=== PATIENT | female | born 1970 | race Caucasian/White ===

== ENCOUNTER 2023-12-22 15:51 | Emergency (ER) | payer BC, OTHER, SELFPAY ==
[2023-12-22 15:59] VITALS: BP 120/80; PULSE 89; TEMP 36.7; O2SAT 100; BMI 30.2
--- NOTE | 2023-12-22 16:16 | ED_ITS ---
HPI - Nausea/Vomiting/Diarrhea General Chief complaint: Nausea/Vomiting/Diarrhea Stated complaint: VOMITING Time Seen by Provider: 12/22/23 16:16 Source: patient Mode of arrival: Wheelchair History of Present Illness HPI Narrative: This patient is here with abrupt onset nausea vomiting and diarrhea last evening. She will to a [facility] service yesterday that had a potluck type food presentation. She had that meal and then approximately 8 hours later she had abrupt onset of vomiting and copious diarrhea followed after that. No other household members are ill but she does not know anyone else who actually ate there. She has not had any previous GI infections. She has no history of colitis or previous GI disturbances. She has not any chest pain. No other viral type symptomatology. Related Data Allergies Allergy/AdvReac Type Severity Reaction Status Date / Time No Known Drug Allergies Allergy Verified 12/22/23 16:01 Exam Narrative Exam Narrative: Patient is awake alert very pleasant. He is dry heaving. Her vital signs are stable and she is afebrile. Problem focused examination shows bowel sounds to be present with some increased activity. There is no guarding rebound rigidity or peritoneal findings. There is no respiratory distress. Her color is good with no evidence of pallor or scleral icterus or anemia. Constitutional Vital Signs, click to edit/add: Last Vital Signs Temp 98.1 F 12/22/23 15:59 Pulse 89 12/22/23 15:59 Resp 20 12/22/23 15:59 BP 120/80 12/22/23 15:59 Pulse Ox 100 12/22/23 15:59 Course Vital Signs Vital signs: Vital Signs Temperature 98.1 F 12/22/23 15:59 Pulse Rate 89 12/22/23 15:59 Respiratory Rate 20 12/22/23 15:59 Blood Pressure 120/80 12/22/23 15:59 Pulse Oximetry 100 12/22/23 15:59 Temperature 98.1 F 12/22/23 15:59 Pulse Rate 89 12/22/23 15:59 Respiratory Rate 20 12/22/23 15:59 Blood Pressure 120/80 12/22/23 15:59 Pulse Oximetry 100 12/22/23 15:59 MDM - Nausea/Vomiting/Diarrhea MDM Narrative Medical decision making narrative: This patient is very suspicious for foodborne illness. She is greatly improved. Lab Data Labs: Lab Results 12/22/23 Range/Units 16:07 WBC 5.5 (4.0-11.0) 10^3/uL RBC 4.49 (4.20-5.40) 10^6/uL Hgb 13.4 (12.0-16.0) g/dL Hct 41.5 (36.0-48.0) % MCV 92.4 (81.0-99.0) fL MCH 29.8 (26.7-34.0) pg MCHC 32.3 (29.9-35.2) g/dL RDW 14.5 (11.0-15.0) % Plt Count 243 (150-450) 10^3/uL MPV 9.5 (9.5-13.5) fL Seg Neuts % (Manual) 72.0 Lymphocytes % (Manual) 19.0 L (20.5-60.0) % Monocytes % (Manual) 6.0 (1.7-12.0) % Eosinophils % (Manual) 2.0 (0.9-7.0) % Basophils % (Manual) 1.0 (0.2-2.0) % Neutrophils # (Manual) 3.96 (1.4-6.5) 10^3/uL Lymphocytes # (Manual) 1.04 L (1.20-3.80) 10^3/uL Monocytes # (Manual) 0.33 (0.30-0.80) 10^3/uL Eosinophils # (Manual) 0.11 (0.00-0.70) 10^3/uL Basophils # (Manual) 0.05 (0.00-0.10) 10^3/uL Sodium 140 (136-145) mmol/L Potassium 3.3 L (3.5-5.1) mmol/L Chloride 104 (98-107) mmol/L Carbon Dioxide 23.6 (21.0-32.0) mmol/L Anion Gap 15.7 BUN 15.0 (7.0-18.0) mg/dL Creatinine 0.71 (0.55-1.02) mg/dL Est GFR ( Amer) >60 (>=60) Est GFR (Non-Af Amer) >60 (>=60) BUN/Creatinine Ratio 21.1 Glucose 119 H (74-106) mg/dL Lactate 1.4 (0.4-2.0) mmol/L Calcium 9.4 (8.5-10.1) mg/dL Total Bilirubin 0.7 (0.2-1.0) mg/dL Direct Bilirubin 0.2 (0.0-0.2) mg/dL AST 18 (15-37) U/L ALT 17 (14-59) U/L Alkaline Phosphatase 66 (46-116) U/L Total Protein 8.0 (6.4-8.2) g/dL Albumin 3.6 (3.4-5.0) g/dL Globulin 4.4 g/dL Albumin/Globulin Ratio 0.8 Lipase 19.0 (16.0-77.0) U/L Discharge Plan Discharge Stand Alone Forms: Portal Instructions Chief Complaint: Nausea/Vomiting/Diarrhea Clinical Impression: Fluid volume depletion, Disorder of electrolytes Patient Disposition: Home, Self-Care Time of Disposition Decision: 18:29 Print Language: Vincentian Additional Instructions: Clear fluids such as popsicles/Jell-O only for 24 hours. Zofran as needed. Return if symptoms worsen Referrals: Physician,Non-Staff, MD [Primary Care Provider] - 1 week
[2023-12-22 16:47] LABS: Hematocrit 41.5 % (36.0-48.0); Hemoglobin 13.4 g/dL (12.0-16.0); Mean Corpuscular HGB Conc 32.3 g/dL (29.9-35.2); Mean Corpuscular Hemoglobin 29.8 pg (26.7-34.0); Mean Corpuscular Volume 92.4 fL (81.0-99.0); Mean Platelet Volume 9.5 fL (9.5-13.5); Platelet Count 243 10^3/uL (150-450); Red Blood Count 4.49 10^6/uL (4.20-5.40); Red Cell Distribution Width 14.5 % (11.0-15.0); White Blood Count 5.5 10^3/uL (4.0-11.0)
[2023-12-22] MEDS: 0.9 % SODIUM CHLORIDE 1,000 ML 999 ML IV (16:47)
[2023-12-22] MEDS: ONDANSETRON PF 4 MG/2 ML VIAL IV (16:47)
[2023-12-22 17:05] LABS: Alanine Aminotransferase 17 U/L (14-59); Albumin Globulin Ratio 0.8; Albumin Level 3.6 g/dL (3.4-5.0); Alkaline Phosphatase 66 U/L (46-116); Anion Gap 15.7; Aspartate Amino Transferase 18 U/L (15-37); BUN Creatinine Ratio 21.1; Bilirubin Direct 0.2 mg/dL (0.0-0.2); Bilirubin Total 0.7 mg/dL (0.2-1.0); Calcium 9.4 mg/dL (8.5-10.1); Carbon Dioxide 23.6 mmol/L (21.0-32.0); Chloride 104 mmol/L (98-107); Estimated GFR (African America >60 (>=60); Estimated GFR (Non-African Ame >60 (>=60); Globulin 4.4 g/dL; Glucose 119 mg/dL (74-106); Potassium 3.3 mmol/L (3.5-5.1); Sodium 140 mmol/L (136-145)
[2023-12-22 17:10] LABS: Lactate/Lactic Acid 1.4 mmol/L (0.4-2.0)
[2023-12-22 17:24] LABS: Segmented Neut Absolute Manual 3.96 10^3/uL (1.4-6.5)
[2023-12-22 17:25] LABS: Basophils Abs Manual 0.05 10^3/uL (0.00-0.10); Eosinophils Absolute Manual 0.11 10^3/uL (0.00-0.70); Lymphocytes Absolute Manual 1.04 10^3/uL (1.20-3.80); Monocytes Absolute Manual 0.33 10^3/uL (0.30-0.80)
[2023-12-22] MEDS: 0.9 % SODIUM CHLORIDE 1,000 ML 1000 ML IV (18:13)
[2023-12-22] MEDS: POTASSIUM CHLORIDE 10 MEQ ER TABLET 20 MEQ PO (18:18)
== END 2023-12-22 18:38 | disposition home or self-care (01) ==
PROVIDERS: Emergency Provider Emergency Medicine Emergency Medical Services
DX: E86.9 Volume depletion, unspecified (principal); E87.8 Other disorders of electrolyte and fluid balance, not elsewhere classified
CPT/HCPCS: 36415; 80053; 80076; 83605; 83690; 85007; 85027; 96361; 96374; 99284; J2405

== ENCOUNTER 2024-05-20 11:11 | Outpatient (OUT) | payer OTHER, SELFPAY ==
--- NOTE | 2024-05-20 11:20 | XR_ITS ---
The [address] [address] Patient Name: MARCY HOLLAND MRN: [id number] date: 1970 Sex: F Assigned Patient Location: [facility] Current Patient Location: Accession/Order Number: [id number] Exam Date: 05/20/2024 11:27 Report Date: 05/22/2024 06:49 At the request of: HARLNA PEDROZA Procedure: XR chest 2V EXAMINATION: XR chest 2V HISTORY: Community Acquired Pneumonia COMPARISON: No relevant comparison available. FINDINGS: LUNGS: No significant pulmonary parenchymal abnormalities. VASCULATURE: No increased pulmonary vasculature. PLEURA: No pneumothorax, effusion, or pleural thickening. CARDIAC: No cardiomegaly or cardiac silhouette abnormality. MEDIASTINUM: No visible mass or adenopathy. BONES: No fracture or visible bone lesion. OTHER: Negative. XR/XR chest 2V IMPRESSION: 1. No acute cardiopulmonary process. Electronically authenticated by: SANDRA TEIXEIRA Date: 05/22/2024 06:49
== END 2024-05-20 11:12 | disposition home or self-care (01) ==
DX: J18.9 Pneumonia, unspecified organism (principal)
CPT/HCPCS: 71046

== ENCOUNTER 2024-06-04 15:43 | Outpatient (OUT) | payer OTHER, SELFPAY ==
--- NOTE | 2024-06-04 15:51 | XR_ITS ---
The [address] [address] Patient Name: MARCY HOLLAND MRN: [id number] date: 1970 Sex: F Assigned Patient Location: [facility] Current Patient Location: Accession/Order Number: [id number] Exam Date: 06/04/2024 15:52 Report Date: 06/05/2024 06:24 At the request of: HARLAN PEDROZA Procedure: XR chest 2V EXAMINATION: XR chest 2V HISTORY: Moderate Persistent Asthma With Acute Exacerbation COMPARISON: XR chest 05/20/2024 FINDINGS: LUNGS: No significant pulmonary parenchymal abnormalities. VASCULATURE: No increased pulmonary vasculature. PLEURA: No pneumothorax, effusion, or pleural thickening. CARDIAC: No cardiomegaly or cardiac silhouette abnormality. MEDIASTINUM: No visible mass or adenopathy. BONES: No fracture or visible bone lesion. OTHER: Negative. XR/XR chest 2V IMPRESSION: 1. No acute cardiopulmonary process. Stable chest. Electronically authenticated by: SANDRA TEIXEIRA Date: 06/05/2024 06:24
== END 2024-06-04 15:44 | disposition home or self-care (01) ==
LOC: RAD 15:44
DX: J45.41 Moderate persistent asthma with (acute) exacerbation (principal); J06.9 Acute upper respiratory infection, unspecified
CPT/HCPCS: 71046

== ENCOUNTER 2024-11-11 09:20 | Outpatient (OUT) | payer BC, OTHER, SELFPAY ==
[2024-11-11 10:22] LABS: Basophils Absolute Auto 0.1 10^3/uL (0.0-0.1); Basophils Percent Auto 1.1 % (0.2-2.0); Eosinophils Absolute Auto 0.5 10^3/uL (0.0-0.7); Eosinophils Percent Auto 9.3 % (0.9-7.0); Immature Granulocytes Abs Auto 0.01 10^3/uL (0.00-0.03); Immature Granulocytes Pct Auto 0.2 % (0.0-0.5); Lymphocytes Absolute Auto 1.9 10^3/uL (1.2-3.8); Lymphocytes Percent Auto 35.6 % (20.5-60.0); Mean Corpuscular HGB Conc 32.5 g/dL (29.9-35.2); Mean Corpuscular Hemoglobin 30.3 pg (26.7-34.0); Mean Corpuscular Volume 93.2 fL (81.0-99.0); Mean Platelet Volume 9.2 fL (9.5-13.5); Monocytes Absolute Auto 0.5 10^3/uL (0.3-0.8); Monocytes Percent Auto 9.8 % (1.7-12.0); Neutrophils Absolute Auto 2.3 10^3/uL (1.4-6.5); Platelet Count 270 10^3/uL (150-450); Red Blood Count 4.29 10^6/uL (4.20-5.40); Red Cell Distribution Width 14.6 % (11.0-15.0); White Blood Count 5.3 10^3/uL (4.0-11.0)
[2024-11-11 10:59] LABS: Bilirubin Urine NEGATIVE (NEGATIVE); Blood Urine NEGATIVE (NEGATIVE); Clarity Urine SL CLOUDY (CLEAR); Color Urine YELLOW (YELLOW); Glucose Urine UA NEGATIVE (NEGATIVE); Ketones Urine TRACE mg/dL (NEGATIVE); Leukocyte Esterase Urine TRACE (NEGATIVE); Nitrite Urine NEGATIVE (NEGATIVE); Protein Urine 30 mg/dL (NEG/TRACE)
[2024-11-11 10:59] LABS: Alanine Aminotransferase 33 U/L (14-59); Albumin Globulin Ratio 0.8; Albumin Level 3.3 g/dL (3.4-5.0); Alkaline Phosphatase 68 U/L (46-116); Anion Gap 9.9; Aspartate Amino Transferase 28 U/L (15-37); BUN Creatinine Ratio 13.2; Bilirubin Total 0.4 mg/dL (0.2-1.0); Calcium 8.8 mg/dL (8.5-10.1); Carbon Dioxide 29.9 mmol/L (21.0-32.0); Chloride 106 mmol/L (98-107); Chol HDL Ratio 2.5; Cholesterol 173 mg/dL (<=200); Estimated GFR (African America >60 (>=60 mL/min/1.73m^2); Estimated GFR (Non-African Ame >60 (>=60 mL/min/1.73m^2); Globulin 3.9 g/dL; Glucose 99 mg/dL (74-106); HDL Cholesterol 70 mg/dL (40-60); Potassium 3.8 mmol/L (3.5-5.1); Sodium 142 mmol/L (136-145); Thyroid Stimulating Hormone 0.632 uIU/mL (0.358-3.740); Total Protein 7.2 g/dL (6.4-8.2); Triglycerides 75 mg/dL (<=150)
[2024-11-11 11:00] LABS: Free T4 1.48 ng/dL (0.76-1.46)
[2024-11-11 11:02] LABS: Urine Microscopic Indicated YES
[2024-11-11 11:51] LABS: RBC Urine 0-2 #/HPF (0-2); WBC Urine 0-2 #/HPF (NONE SEEN)
[2024-11-11 11:52] LABS: Bacteria Urine SMALL #/HPF (NONE SEEN); Cast Seen? NONE SEEN #/LPF (NONE SEEN); Crystals Seen? None Seen #/HPF (None Seen); Mucus Urine SMALL (NONE SEEN); Squamous Epithelial Cell Urine MANY #/LPF (NONE/RARE)
== END 2024-11-11 09:21 | disposition home or self-care (01) ==
PROVIDERS: Visit Provider Nurse Practitioner
DX: J44.9 Chronic obstructive pulmonary disease, unspecified (principal); K21.9 Gastro-esophageal reflux disease without esophagitis; E03.9 Hypothyroidism, unspecified; J45.909 Unspecified asthma, uncomplicated
CPT/HCPCS: 36415; 80053; 80061; 81001; 84439; 84443; 85025